=== PATIENT | female | born 1925 | race Caucasian/White ===

== ENCOUNTER 2016-11-08 22:35 | Inpatient (IN) | payer MEDICARE, MEDICAID ==
[2016-11-08 23:18] VITALS: BP 145/81
[2016-11-09] MEDS ORDERED: Magnesium Hydroxide (MOM) 30 mL UDC PO PRN (00:10)
[2016-11-09] MEDS ORDERED: Hydrocodone/APAP 5mg/325mg Tab PO PRN (00:10)
[2016-11-09] MEDS ORDERED: Maalox 30 mL Cup PO PRN (00:10)
[2016-11-09] MEDS ORDERED: Enoxaparin Subq per Pharmacy MC SCH (00:30)
[2016-11-09 01:04] LABS: ALB/GLOB RATIO 1.1 (1.0-1.8); ALKALINE PHOSPHATASE 108 U/L (34-104); ANION GAP 6.7 (7.0-16.0); BILIRUBIN,TOTAL 0.5 mg/dL (0.3-1.0); BUN - UREA NITROGEN 15 mg/dL (7-25); BUN/CREATININE RATIO 18.8; CALCIUM SERUM 8.4 mg/dL (8.6-10.3); CARBON DIOXIDE 25.2 mEq/L (21.0-31.0); CHLORIDE 106 mEq/L (98-107); CHOLESTEROL 109 mg/dL (<200); CREATININE - SERUM 0.8 mg/dL (0.6-1.2); GLUCOSE 109 mg/dL (70-105); POTASSIUM SERUM 3.9 mEq/L (3.5-5.1); SGOT 17 U/L (13-39); SGPT/ALT 13 U/L (7-52); SODIUM SERUM 134 mEq/L (136-145); TRIGLYCERIDES 95 mg/dL (<150)
[2016-11-09] MEDS: Hydrocodone/APAP 10 mg/325 mg Tab PO PRN ×2 (01:20→10:51)
[2016-11-09] MEDS ORDERED: Diltiazem 5 mg/mL 5mL Vial IVP STA (08:10)
[2016-11-09] MEDS: Diltiazem 30 mg Tab PO SCH ×3 (08:28→17:32)
[2016-11-09] MEDS: Enoxaparin 40 mg/0.4 mL 0.4mL Syr SUBQ SCH (08:29)
[2016-11-09 10:57] LABS: HEMATOCRIT 35.9 % (35.0-45.0); HEMOGLOBIN 12.2 gm/dL (11.7-16.1); MEAN CORPUSCULAR HEMOGLOBIN 30.6 pg (27.0-31.0); MEAN PLATELET VOLUME 10.9 fl; PLATELET COUNT 145 Th/cmm (150-400); RED BLOOD COUNT 3.99 Mil/cmm (3.80-5.20); WHITE BLOOD COUNT 8.3 Th/cmm (4.8-10.8)
[2016-11-09] MEDS ORDERED: Pneumococcal Vaccine 0.5 mL Vial IM ONE (11:00)
[2016-11-09] MEDS ORDERED: Influenza Vaccine 0.5 mL Syr IM ONE (11:00)
[2016-11-09 11:12] LABS: BASOPHIL 2 % (0-3); EOSINOPHIL 1 % (0-5); NEUTROPHILS 47 % (40-80); TOTAL CELLS COUNTED 100
[2016-11-09 11:13] LABS: PLATELET ESTIMATE DECREASED PLATELETS (NORMAL); PLATELET MORPHOLOGY NORMAL (NORMAL)
[2016-11-09 12:09] LABS: INR 1.1 (0.5-1.4)
[2016-11-09] MEDS ORDERED: Naloxone 0.4 mg/mL 1mL Vial ONE (12:32)
[2016-11-09] MEDS ORDERED: Naloxone 0.4 mg/mL 1mL Vial IV ONE (12:33)
--- NOTE | 2016-11-09 16:07 | Diagnostic Imaging Report ---
Bilateral carotid Doppler ultrasound exam HISTORY: Dizziness, syncope Sonographic sector images were obtained to the carotid bifurcation regions bilaterally. Associated Doppler data is obtained. The exam of the right side demonstrates mild to moderate diffuse atherosclerotic plaque to the common carotid artery and proximal internal carotid artery. Antegrade vertebral artery flow. Velocities and flow ratios are normal (ICC/CCA equals 1.1). The exam of the left side demonstrates mild diffuse atherosclerotic changes to the bifurcation area. Findings somewhat more moderate in the carotid bulb region. Antegrade vertebral artery flow. Slight increase in velocity noted within the internal carotid artery region. The ICA/CCA flow ratios normal (1.3). IMPRESSION: 1. Evidence of mild to moderate diffuse bilateral atherosclerotic changes
[2016-11-09] MEDS: D5-0.45NS 1,000 ML IV SCH (16:30)
[2016-11-10] MEDS: Diltiazem 30 mg Tab PO SCH ×4 (00:49→17:15)
--- NOTE | 2016-11-10 03:43 | History & Physical ---
CHIEF COMPLAINT: The patient has atrial fibrillation, new onset. HISTORY OF PRESENT ILLNESS: The patient is an 89-year-old female who initially presented to Emergency Room at [facility]. The patient was brought in by daughter to [facility] for complaints of left lower buttock pain radiating to right thigh by 7 days. The patient has been receiving home physical therapy. The patient has been taking Tylenol for pain without any relief. The patient denies any incontinence. The patient denies any numbness or tingling. In the ER, the patient was found to have new onset atrial fibrillation, uncontrolled heart rate in the 160s. The patient was transferred over to from [facility] ER to [facility] for further medical management. PAST MEDICAL HISTORY: 1. Hypertension. 2. Atherosclerosis of the aorta. 3. Depression. 4. Insomnia. 5. GERD. PAST SURGICAL HISTORY: Negative. ALLERGIES: No known drug allergies. MEDICATION: See medication reconciliation form. REVIEW OF SYSTEMS: See history of present illness. PHYSICAL EXAMINATION: VITAL SIGNS: On admission are as follows: Temperature is 97.9, pulse 122, blood pressure 145/81, respiratory rate 18, and O2 sat is 92% on room air. GENERAL: The patient is awake and alert, nontoxic in appearance. HEENT: Normocephalic and atraumatic. Extraocular movements are intact. Pupils are equal and reactive to light and accommodation. Oropharynx is clear. NECK: Supple. No thyromegaly. No lymphadenopathy. RESPIRATORY: Clear. No wheezing or rhonchi. CARDIOVASCULAR: Irregular rate and rhythm. GASTROINTESTINAL: Soft. Nontender and nondistended. Positive bowel sounds present. GENITOURINARY: No CVA tenderness and no suprapubic tenderness. BACK: Limb tenderness. EXTREMITIES: Equal pulses bilaterally. No cyanosis, clubbing, or edema. SKIN: Negative. PSYCHIATRIC: Negative. NEUROLOGIC: Cranial nerves II to XII are intact. Extraocular movements are intact. Sensation is intact. LABORATORY DATA: On admission as follows: Hematology: WBC 8.3, hemoglobin 12.2, hematocrit 35.9, platelet count of 145, 17% monocytes. PT 11.0 and INR 1.1. Chemistry: Sodium 134, potassium 3.9, chloride ____, bicarb 25, anion gap 6.7, BUN 15, creatinine 0.8, glucose is 109, calcium 8.4, total bilirubin is 0.5, AST 17, ALT 13, alk phos 108, and creatinine kinase 38. Troponin is 0.03. Total protein is 6.3. Albumin is 3.3, globulin 3.0. Lipid panel: Triglycerides 95, cholesterol 109, LDL is 76, HDL is 26, and TSH 1.29. Radiological test: CT of the lumbar spine shows L2 and L1 compression fractures, compression fracture of L4 vertebral body, partially visualized right-sided pleural effusion with adjacent ____, lung bases with atelectasis. Chest x-ray from [place] shows poor lung expansion and compressive changes. IMPRESSION: 1. Atrial fibrillation (new onset). 2. L2-L1 compression fractures. 3. Compression fracture of L4. 4. Lumbago. 5. Gastroesophageal reflux disease. 6. Insomnia. 7. Depression. 8. Thrombocytopenia. 9. Hyponatremia. 10. Hyperglycemia. 11. Hypercalcemia. 12. Hyperalbuminemia. PLAN: The patient was admitted to telemetry unit at [facility]. Cardiology consultation Dr. Richar Nettles. Obtain further labs and consultation as needed. JOB# [id number] MTDRemigio
[2016-11-10] MEDS: D5-0.45NS 1,000 ML IV SCH (05:12)
[2016-11-10 07:00] LABS: INR 1.3 (0.5-1.4); PROTHROMBIN TIME (TEST) 13.1 SECONDS (9.5-11.5)
[2016-11-10 07:01] LABS: HEMATOCRIT 32.7 % (35.0-45.0); MEAN CORPUSCULAR HEMOGLOBIN 30.4 pg (27.0-31.0); MEAN CORPUSCULAR HGB CONC 33.7 pg (28.0-36.0); MEAN PLATELET VOLUME 9.9 fl; PLATELET COUNT 141 Th/cmm (150-400); RED BLOOD COUNT 3.63 Mil/cmm (3.80-5.20); RED CELL DISTRIBUTION WIDTH 13.9 % (11.5-20.0)
[2016-11-10 07:04] LABS: ANION GAP 5.1 (7.0-16.0); BUN - UREA NITROGEN 11 mg/dL (7-25); BUN/CREATININE RATIO 15.7; CALCIUM SERUM 8.3 mg/dL (8.6-10.3); CARBON DIOXIDE 27.4 mEq/L (21.0-31.0); CHLORIDE 106 mEq/L (98-107); CREATININE - SERUM 0.7 mg/dL (0.6-1.2); GLUCOSE 114 mg/dL (70-105); POTASSIUM SERUM 3.5 mEq/L (3.5-5.1); SODIUM SERUM 135 mEq/L (136-145)
[2016-11-10 07:08] LABS: WHITE BLOOD COUNT 6.5 Th/cmm (4.8-10.8)
[2016-11-10] MEDS: Pantoprazole 40 mg EC Tab PO SCH (09:26)
[2016-11-10] MEDS: Enoxaparin 40 mg/0.4 mL 0.4mL Syr SUBQ SCH (09:26)
[2016-11-10 09:54] LABS: BAND NEUTROPHILE 2 % (0-10); NEUTROPHILS 49 % (40-80); PLATELET ESTIMATE DECREASED PLATELETS (NORMAL); PLATELET MORPHOLOGY NORMAL (NORMAL); TOTAL CELLS COUNTED 100
[2016-11-10] MEDS ORDERED: IOHEXOL 300MG/ML 100 ML VIAL IVP ONE (10:05)
--- NOTE | 2016-11-10 11:23 | Diagnostic Imaging Report ---
Head CT with intravenous contrast Indication: Acute right-sided hemiplegia Comparison: None Technique: Axial images were obtained from the vertex to the skull base with IV contrast. Coronal reconstructions were made. Total DLP: 550, CTDI31.3 FINDINGS: Assessment for hemorrhage is limited due to IV contrast administration, however, no evidence of an acute hemorrhage. Mild atrophy is noted. Minimal supratentorial white matter disease noted. The ventricles and basal cisterns are patent. No mass effect or midline shift. No enhancing mass lesions identified. Limited evaluation of the vasculature demonstrates no significant focal atherosclerotic vascular disease. No evidence of a skull fracture or focal soft tissue swelling. The visualized paranasal sinuses are clear. IMPRESSION: No evidence of an intracranial hemorrhage Atrophy. Minimal supratentorial white matter disease which is nonspecific and may be due to chronic microvessel ischemia Given patient's clinical history, consider further assessment with MRI examination.
--- NOTE | 2016-11-10 15:33 | Admit Criteria Form ---
Admit Criteria Forms - Admit Criteria Diagnosis: TELEMETRY CARE Telemetry Admission Guidelines (Place 'X' for any and all applicable criteria): Admission to telemetry [A] may be indicated for ANY ONE of the following(1)(2)(3 )(4)(5): [X ]I. Cardiac disease, including ANY ONE of the following (9)(10)(11)(12)( 13): [ ]a) Postacute AK [ ]b) Low-risk patients with ST-segment elevation AK who have undergone successful percutaneous coronary intervention [ ]c) Unstable angina [ ]d) Suspected AK (until it is ruled out) [ ]e) Post cardiac surgery (first 48 to 72 hours unless complications occur) [ X]f) Acute arrhythmias (including significant tachycardia or bradycardia) [B] [ ]g) Firing of an implantable cardioverter defibrillator [C] [ ]h) Suspected pacemaker or implantable cardioverter defibrillator malfunction (10) [ ]i) New administration or adjustment of an antiarrhythmic drug [D ] [ ]j) Child admitted for acute congestive heart failure [ ]j) Long QT syndrome [ ]k) Advanced heart block (eg, second-degree Mobitz type II, third- degree heart block) [ ]l) Acute myocarditis or pericarditis [ ]m) Short-term (ambulatory or inpatient) monitoring after a cardiac procedure as indicated by ANY ONE of the following [E]: [ ]i) Electrophysiologic studies [ ]ii) Percutaneous coronary intervention with stent placement [ ]iii) Pacemaker placement with cardiac conduction defect [ ]iv) Implantable cardiac defibrillator placement [ ]II. Drug overdose or poisoning with substance that causes arrhythmias or QT prolongation (eg, phenothiazines, sympathomimetic agents, cyclic antidepressants, digitalis, antiarrhythmic drugs)(15) [ ]III. Short-term (ambulatory or inpatient) monitoring after therapeutic or diagnostic procedure requiring conscious sedation or anesthesia (eg, endoscopy, elective cardioversion) [ ]IV. Acute cerebrovascular even[F](18) [ ]V. Massive blood transfusion (eg, at least 10 units of packed red blood cells in 24 hours) [ ]. Variceal bleeding after endoscopy, sclerotherapy, or IV vasopressin [ ]VII. Uncorrected electrolyte abnormalities associated with an increased risk of dangerous arrhythmia [G]; examples include [ ]a) Hyperkalemia with attributable ECG changes [ ]b) Potassium greater than 6.5 mmol/L (mEq/L) in a patient without history of chronic renal disease [ ]c) Prolonged QT attributed to hypokalemia, hypomagnesemia, or hypocalcemia [ ]VIII.Unexplained syncope or other neurologic event suspected of being due to arrhythmia due to a finding that increases risk; examples include(19)(20)(21): [ ]a) High-risk ECG findings (eg, bifascicular block, bradycardia, abnormal QT interval, ventricular pre- excitation) [ ]b) History of previous syncope due to arrhythmia [ ]c) Abnormal ventricular function (eg, reduced ejection fraction ) [ ]d) Exertional or supine syncope [ ]e) Concerning syncope characteristics (eg, sudden loss of consciousness without prodrome) [ ]f) Family history of sudden [ ]g) Use of arrhythmogenic medication [ ]h) Suspected cardiac ischemia [ ]i) Known channelopathy (eg, long QT syndrome, Brugada syndrome, or catecholaminergic paroxysmal ventricular tachycardia) [ ]j) Known structural heart disease (eg, hypertrophic cardiomyopathy , severe valvular disease) [ ]k) Palpitations preceding syncope The original [employer] content created by [employer] has been revised. The portions of the content which have been revised are identified through the use of italic text or in bold, and [facility] has neither reviewed nor approved the modified material. All other unmodified content is copyright [employer]. Please see references footnoted in the original [employer] edition 2016 Admit Criteria Met?: Yes
[2016-11-10] MEDS: Hydrocodone/APAP 10 mg/325 mg Tab PO PRN (17:15)
--- NOTE | 2016-11-10 21:58 | Consultation ---
CARDIOLOGY CONSULTATION: HISTORY OF PRESENT ILLNESS: This patient is seen on courtesy of Dr. Ronald Nettles, as the patient is coming with atrial fibrillation. Initially, the patient was admitted here on transfer from [facility], as the patient came with palpitation and having the lower back pain and the right thigh pain for 7 days, but here on coming, it was found that the patient has new onset of atrial fibrillation uncontrolled. Heart rate was 160, which was brought down to 110 in range after giving the Cardizem. The patient is still in atrial fibrillation with better control somewhere about 90-110 range of ventricular rate. This morning, it was found out that the patient has weakness on the right side, could not lift her right leg and also has weakness in lifting the upper right extremity and closing the hand. There is weakness on the upper right extremity and inability to mobilize right lower extremity. Last night, the patient was started on Lovenox and started Coumadin also and was in the process of getting the full dose of calculated 1 mg/kg body weight Lovenox. PAST MEDICAL HISTORY: Hypertension, insomnia, GERD and also atherosclerotic cardiovascular disease. ALLERGIES: None known. MEDICATIONS: Reviewed. PHYSICAL EXAMINATION: GENERAL: The patient is an 89-year-old female who is Persian speaking, not in acute distress. VITAL SIGNS: Blood pressure is in normal range, heart rate atrial fibrillation with rapid ventricular rate of 90-110 range. HEENT: Normal. NECK: Supple. JVP is flat. No lymphadenopathy. CHEST: Equal breath sounds bilaterally. No chest wall tenderness. LUNGS: Clinically clear. CARDIOVASCULAR SYSTEM: PMI not palpable. Heart sounds are variable. Heart rate is also irregularly irregular. The S2 is loud and variable with systolic ejection murmur, which is 2-3/6 grade in aortic area conducting towards the carotid, towards apex. POLICY DIRECTOR: As mentioned above. EXTREMITIES: No edema. No cyanosis. Peripheral pulsations are equal bilaterally. IMPRESSION: 1. Atrial fibrillation, better controlled with ventricular rate. 2. New onset of atrial fibrillation. 3. New onset of a stroke. 4. History of electrolyte disorder as mentioned above. Other medical problems are as per chart. PLAN: In view of recent stroke, I discussed the case with Dr. Conway and the family also. We will transfer the patient to [facility] for new stroke and with stroke management. I have ordered the stat CT while we are waiting for ambulance and bed to be arranged at [facility]. Further workup and management as needed, JOB# [id number] MIKAELA
[2016-11-11] MEDS: Diltiazem 30 mg Tab PO SCH ×5 (00:18→23:36)
--- NOTE | 2016-11-11 05:34 | Progress Notes ---
SUBJECTIVE: The patient is on anticoagulation therapy per pharmacy with Lovenox and Coumadin. The patient has new onset weakness on right side of body. OBJECTIVE: VITAL SIGNS: Temperature 97.6, pulse is 100, blood pressure 135/72, respiratory rate 20, O2 saturation 95% on nasal cannula. CARDIOVASCULAR: Irregularly irregular. RESPIRATORY: Clear. GASTROINTESTINAL: Soft. Positive bowel sounds. Neurological: RUE/RLE Weakness LABORATORY DATA: Hematology: WBC of 6.5, hemoglobin 10.0, hematocrit 32.7, platelet count 141. PT 13.1, INR 1.3. Chemistry: Sodium 135, potassium 3.5, chloride 106, bicarbonate 27, anion gap 5.1, BUN 11, creatinine 0.7, GFR unavailable. Glucose is 114, calcium 8.3. Microbiology: No new microbiology results. ASSESSMENT: 1. Atrial fibrillation (new onset). 2. L2, L1 compression fractures. 3. Compression of L4. 4. Lumbago. 5. Gastroesophageal reflux disease. 6. Insomnia. 7. Depression. 8. Anemia. 9. Thrombocytopenia. 10. Hyponatremia. 11. Hyperglycemia. 12. Hypocalcemia. 13. CVA (new onset) PLAN: Continue current medication and treatment. Obtain labs in a.m. Awaiting Cardiology consultation. Further recommendations per consults. CT of Head ordered. Neurology Consult (Dr. Conway) ordered. JOB# [id number] MTDD
[2016-11-11 07:10] LABS: HEMOGLOBIN 12.3 gm/dL (11.7-16.1); MEAN CELL VOLUME 89.9 fl (81-100); MEAN CORPUSCULAR HEMOGLOBIN 30.5 pg (27.0-31.0); MEAN CORPUSCULAR HGB CONC 33.9 pg (28.0-36.0); MEAN PLATELET VOLUME 9.9 fl; PLATELET COUNT 150 Th/cmm (150-400); RED BLOOD COUNT 4.02 Mil/cmm (3.80-5.20); RED CELL DISTRIBUTION WIDTH 13.9 % (11.5-20.0); WHITE BLOOD COUNT 7.5 Th/cmm (4.8-10.8)
[2016-11-11 07:24] LABS: BUN - UREA NITROGEN 8 mg/dL (7-25); BUN/CREATININE RATIO 11.4; CALCIUM SERUM 8.3 mg/dL (8.6-10.3); CARBON DIOXIDE 29.2 mEq/L (21.0-31.0); CHLORIDE 105 mEq/L (98-107); CREATININE - SERUM 0.7 mg/dL (0.6-1.2); GLUCOSE 113 mg/dL (70-105); HEMATOCRIT 36.2 % (35.0-45.0); POTASSIUM SERUM 3.2 mEq/L (3.5-5.1); SODIUM SERUM 136 mEq/L (136-145)
[2016-11-11 08:08] LABS: INR 3.83 (0.5-1.4)
[2016-11-11 08:33] LABS: EOSINOPHIL 2 % (0-5); NEUTROPHILS 51 % (40-80); TOTAL CELLS COUNTED 100
[2016-11-11 08:34] LABS: PLATELET ESTIMATE ADEQUATE (NORMAL); PLATELET MORPHOLOGY NORMAL (NORMAL)
[2016-11-11 08:45] LABS: PROTHROMBIN TIME (TEST) 41.3 SECONDS (9.5-11.5)
[2016-11-11] MEDS: Enoxaparin 40 mg/0.4 mL 0.4mL Syr SUBQ SCH (09:00)
[2016-11-11] MEDS: Pantoprazole 40 mg EC Tab PO SCH (09:16)
[2016-11-11] MEDS: D5-0.45NS 1,000 ML IV SCH (09:17)
--- NOTE | 2016-11-11 10:27 | History & Physical ---
HISTORY OF PRESENT ILLNESS: The patient is an 89-year-old. Transferred from [place]. She had a complaint of back pain, question of possible fall. Noted to have an old compression fracture. The patient also has atrial fibrillation. ____ patient noted by the family in the morning that she had paralysis on the right side. She can talk okay, sees okay, can swallow. Discussed with Dr. Mirna Nettles who recommended the patient be transferred to a Stroke Center. The patient continues to be the same with the weakness on the right side. PAST MEDICAL HISTORY: Hypertension, ataxia, now new atrial fibrillation. ALLERGIES: None known. SOCIAL HISTORY: Does not smoke or drink. REVIEW OF SYSTEMS: On talking to family, vision okay. Somewhat forgetful. No chest pain. Back pain as above. Weakness on right side. PHYSICAL EXAMINATION: VITAL SIGNS: Temperature 98.2, blood pressure 140/88, pulse is around about 110. NECK: Supple. No bruits. HEART: Sounds S1, S2. Soft murmur. LUNGS: Clear. ABDOMEN: Soft. NEUROLOGIC: The patient is awake, alert. She follows instruction. Family by the bedside. She speaks mainly Belarusian. CRANIAL NERVES: The patient has no visual field defect. I do not see much facial weakness. Motor: She will lift arms, but much weaker on the right. Legs, the right she cannot lift, the left is about 3+. Reflexes, about 1, reduced on the right. Babinski on the right. INVESTIGATIONS: CT scan of the head, no acute process noted. No bleed. Some small vessel disease. The patient had carotid Doppler studies, has atherosclerotic changes. LABORATORY DATA: WBC 7.5, hemoglobin 12.3. INR is 1.3. TSH is 1.29. IMPRESSION: 1. Stroke, right hemiparesis. 2. Atrial fibrillation. 3. Back pain with compression fracture. 4. Ataxia. 5. Hypertension. TREATMENT AT THE MOMENT: The patient is on Lovenox 40 subcu daily. The patient apparently started also on Coumadin as per Pharmacy. Discussed with the family the patient risk of stroke without anticoagulation, but also high risk with anticoagulation. Family aware. MANAGEMENT: At this time, I plan to do an MRI, recommend echocardiogram. Physical therapy rehabilitation. JOB# [id number]
--- NOTE | 2016-11-12 01:40 | Progress Notes ---
SUBJECTIVE: The patient is awake and alert. The patient has weakness on right upper extremity and right lower extremity. The patient is on anticoagulation therapy. OBJECTIVE: VITAL SIGNS: Temperature 98.0, pulse 135, blood pressure per nursing, respiratory rate 17, and O2 sat 93% on 2 L nasal cannula. CARDIOVASCULAR: Regular rate and rhythm. RESPIRATORY: A few rales. GASTROINTESTINAL: Soft. Positive bowel sounds. EXTREMITIES: Weakness on right upper extremity and right lower extremity. LABORATORY DATA: Hematology: WBC 7.5, hemoglobin 12.3, hematocrit 36.2, platelet count per labs, 19% monocytes. PT per labs. INR 3.83. Chemistry: Sodium 136, potassium 3.2, chloride 105, bicarb 29, anion gap 5, BUN 8, and creatinine 0.7. GFR is unavailable. Glucose is 113 and calcium 8.3. Microbiology: MRSA screen from 11/09/2016 is positive. ASSESSMENT: 1. Atrial fibrillation (new onset). 2. L2-L1 compression fracture. 3. Compression of L4. 4. Lumbago. 5. Gastroesophageal reflux disease. 6. Insomnia. 7. Depression. 8. MRSA colonization 9. Hyperglycemia. 10. Hypocalcemia. 11. Cerebrovascular accident (new onset). 12. Debility (secondary to cerebrovascular accident). 13. Right-sided hemiplegia. PLAN: Continue current medication and treatment. Obtain labs in a.m. Ordered for rehab therapy. The patient's Lovenox has been stopped. The patient is still on Coumadin per pharmacy. JOB# [id number] [facility] NETWORKRemigio
[2016-11-12] MEDS ORDERED: Diltiazem 5 mg/mL 5mL Vial IVP PRN (05:24)
[2016-11-12] MEDS: Diltiazem 30 mg Tab PO SCH ×3 (06:04→17:03)
[2016-11-12] MEDS: Pantoprazole 40 mg EC Tab PO SCH (08:54)
[2016-11-12 10:07] LABS: HEMATOCRIT 36.5 % (35.0-45.0); HEMOGLOBIN 12.5 gm/dL (11.7-16.1); MEAN CELL VOLUME 88.9 fl (81-100); MEAN CORPUSCULAR HEMOGLOBIN 30.5 pg (27.0-31.0); MEAN CORPUSCULAR HGB CONC 34.3 pg (28.0-36.0); MEAN PLATELET VOLUME 9.1 fl; PLATELET COUNT 171 Th/cmm (150-400); RED CELL DISTRIBUTION WIDTH 13.8 % (11.5-20.0); WHITE BLOOD COUNT 7.6 Th/cmm (4.8-10.8)
[2016-11-12 10:41] LABS: ALKALINE PHOSPHATASE 104 U/L (34-104); ANION GAP 4.3 (7.0-16.0); BILIRUBIN,TOTAL 0.6 mg/dL (0.3-1.0); BUN - UREA NITROGEN 5 mg/dL (7-25); BUN/CREATININE RATIO 8.3; CALCIUM SERUM 8.2 mg/dL (8.6-10.3); CARBON DIOXIDE 30.1 mEq/L (21.0-31.0); CHLORIDE 103 mEq/L (98-107); CREATININE - SERUM 0.6 mg/dL (0.6-1.2); GLUCOSE 138 mg/dL (70-105); SGOT 14 U/L (13-39); SGPT/ALT 9 U/L (7-52); SODIUM SERUM 135 mEq/L (136-145)
[2016-11-12 10:55] LABS: POTASSIUM SERUM 2.4 mEq/L (3.5-5.1)
[2016-11-12 10:56] LABS: INR 3.98 (0.5-1.4); PROTHROMBIN TIME (TEST) 43.1 SECONDS (9.5-11.5)
[2016-11-12] MEDS: Enoxaparin 40 mg/0.4 mL 0.4mL Syr SUBQ SCH (10:56)
[2016-11-12] MEDS ORDERED: Potassium Chloride 40 MEQ, Lidocaine 1% 20mL Vial 25 MG in Sodium Chloride 0.9% 250 ML IV ONE (11:05)
[2016-11-12 11:09] LABS: EOSINOPHIL 2 % (0-5); NEUTROPHILS 45 % (40-80); PLATELET ESTIMATE ADEQUATE (NORMAL); PLATELET MORPHOLOGY NORMAL (NORMAL); TOTAL CELLS COUNTED 100
[2016-11-13] MEDS: Diltiazem 30 mg Tab PO SCH ×4 (00:46→17:12)
--- NOTE | 2016-11-13 03:26 | Progress Notes ---
SUBJECTIVE: The patient is awake and alert. Per family, the patient ____ tired and weak. The patient per family also is choking on salts and liquids. OBJECTIVE: VITAL SIGNS: Temperature 97.9, pulse 119, blood pressure 119/70, respiratory rate 18, and O2 sat is 96% on O2 nasal cannula. CARDIOVASCULAR: S1 and S2. RESPIRATORY: A few rales. GASTROINTESTINAL: Soft. Positive bowel sounds. LABORATORY DATA: Hematology: WBC is 7.6, hemoglobin 12.5, hematocrit 36.5, platelet count per labs, 45% lymphocytes, 28% monocytes. PT 43.1, INR 3.98. Chemistry: Sodium 135, potassium 2.4, chloride 103, bicarb 30, anion gap of 4.3, BUN 5, creatinine 0.6. GFR unavailable. Glucose is 138, calcium 8.2, total bili 0.6, AST 14, ALT 9, alk phos 104, total protein 6.4, albumin 3.2, globulin 3.2. Radiology: No new results. ASSESSMENT: 1. Hyponatremia. 2. Hypokalemia. 3. Hyperglycemia. 4. Hypercalcemia. 5. Hyperalbuminemia. 6. Atrial fibrillation (new onset). 7. L2-L1 compression fracture. 8. Compression fracture of L4. 9. Lumbago. 10. Gastroesophageal reflux disease. 11. Depression. 12. Methicillin-resistant Staphylococcus aureus colonization. 13. Cerebrovascular accident (new onset). 14. Debility secondary to cerebrovascular accident. 15. Right-sided hemiplegia. 16. Dysphagia. PLAN: Continue current medication and treatment. Obtain labs in a.m. Continue inpatient rehab therapy. Pharmacy will manage Coumadin dosing. We will obtain speech therapy evaluation regarding the patient's apparent choking. JOB# [id number] [facility]
[2016-11-13] MEDS: D5-0.45NS 1,000 ML IV SCH ×2 (05:00→20:51)
[2016-11-13 07:00] LABS: INR 2.7 (0.5-1.4); PROTHROMBIN TIME (TEST) 28.5 SECONDS (9.5-11.5)
[2016-11-13 07:08] LABS: BUN - UREA NITROGEN 8 mg/dL (7-25); BUN/CREATININE RATIO 13.3; CALCIUM SERUM 8.1 mg/dL (8.6-10.3); CARBON DIOXIDE 29.1 mEq/L (21.0-31.0); CHLORIDE 106 mEq/L (98-107); CREATININE - SERUM 0.6 mg/dL (0.6-1.2); GLUCOSE 130 mg/dL (70-105); POTASSIUM SERUM 3.1 mEq/L (3.5-5.1); SODIUM SERUM 136 mEq/L (136-145)
[2016-11-13 07:24] LABS: HEMATOCRIT 33.2 % (35.0-45.0); HEMOGLOBIN 11.5 gm/dL (11.7-16.1); MEAN CELL VOLUME 89.1 fl (81-100); MEAN CORPUSCULAR HEMOGLOBIN 30.8 pg (27.0-31.0); MEAN CORPUSCULAR HGB CONC 34.6 pg (28.0-36.0); MEAN PLATELET VOLUME 9.6 fl; PLATELET COUNT 169 Th/cmm (150-400); RED BLOOD COUNT 3.73 Mil/cmm (3.80-5.20); RED CELL DISTRIBUTION WIDTH 13.8 % (11.5-20.0); WHITE BLOOD COUNT 6.7 Th/cmm (4.8-10.8)
[2016-11-13 09:49] LABS: EOSINOPHIL 2 % (0-5); NEUTROPHILS 46 % (40-80); PLATELET ESTIMATE ADEQUATE (NORMAL); PLATELET MORPHOLOGY NORMAL (NORMAL); TOTAL CELLS COUNTED 100
[2016-11-13] MEDS: Pantoprazole 40 mg EC Tab PO SCH (09:58)
[2016-11-13] MEDS: Diltiazem 5 mg/mL 5mL Vial IVP PRN ×2 (11:48→18:01)
[2016-11-13] MEDS ORDERED: Potassium Chloride 40 MEQ, Lidocaine 1% 20mL Vial 25 MG in Sodium Chloride 0.9% 250 ML IV ONE (12:00)
[2016-11-14] MEDS: Diltiazem 30 mg Tab PO SCH ×3 (01:24→12:57)
[2016-11-14 06:15] LABS: HEMATOCRIT 34.3 % (35.0-45.0); HEMOGLOBIN 11.6 gm/dL (11.7-16.1); MEAN CELL VOLUME 89.7 fl (81-100); MEAN CORPUSCULAR HEMOGLOBIN 30.4 pg (27.0-31.0); MEAN CORPUSCULAR HGB CONC 33.8 pg (28.0-36.0); PLATELET COUNT 170 Th/cmm (150-400); RED BLOOD COUNT 3.83 Mil/cmm (3.80-5.20); RED CELL DISTRIBUTION WIDTH 13.8 % (11.5-20.0)
[2016-11-14 06:26] LABS: INR 3.32 (0.5-1.4); PROTHROMBIN TIME (TEST) 35.4 SECONDS (9.5-11.5)
[2016-11-14] MEDS: D5-0.45NS 1,000 ML IV SCH (06:29)
[2016-11-14 06:31] LABS: ANION GAP 4.6 (7.0-16.0); BUN - UREA NITROGEN 10 mg/dL (7-25); BUN/CREATININE RATIO 16.7; CALCIUM SERUM 8.3 mg/dL (8.6-10.3); CARBON DIOXIDE 27.4 mEq/L (21.0-31.0); CHLORIDE 106 mEq/L (98-107); CREATININE - SERUM 0.6 mg/dL (0.6-1.2); GLUCOSE 141 mg/dL (70-105); SODIUM SERUM 135 mEq/L (136-145)
[2016-11-14] MEDS ORDERED: Potassium Chloride 20 mEq ER Tab PO ONE ×2 (06:49→15:21)
[2016-11-14 07:31] LABS: EOSINOPHIL 4 % (0-5); NEUTROPHILS 44 % (40-80); TOTAL CELLS COUNTED 100
[2016-11-14 07:32] LABS: PLATELET ESTIMATE ADEQUATE (NORMAL); PLATELET MORPHOLOGY NORMAL (NORMAL)
[2016-11-14] MEDS: Pantoprazole 40 mg EC Tab PO SCH (10:03)
--- NOTE | 2016-11-14 13:10 | Progress Notes ---
SUBJECTIVE: The patient is awake and alert. The patient is unable to do MRI due to the patient being claustrophobic. The patient is receiving inpatient rehab therapy. The patient is on anticoagulation therapy. OBJECTIVE: VITAL SIGNS: Temperature 98.2, pulse 124, blood pressure 112/74, respirations 17 and O2 saturation 98% on 2 liters nasal cannula. CARDIOVASCULAR: S1 and S2. RESPIRATORY: Rales. ABDOMEN: Soft, positive bowel sounds. LABORATORY DATA: Hematology: WBC of 6.7, hemoglobin 11.5, hematocrit 33.2, platelet count 169 and 25% monocytes. PT 28.5, INR of 2.7. Chemistry: Sodium 136, potassium 3.1, chloride 106, bicarbonate of 29, anion gap of 4, BUN 8, creatinine 0.6, glucose is 130 and calcium 8.1. RADIOLOGY: No new radiology test. ASSESSMENT: 1. Anemia. 2. Hypokalemia. 3. Hypoglycemia. 4. Hypocalcemia. 5. Atrial fibrillation (new onset). 6. L2-L1 compression fracture, compression fracture L4, lumbago. 7. Gastroesophageal reflux disease. 8. Depression. 9. Insomnia. 10. MRSA colonization, new onset. 11. Cerebrovascular accident, new onset. 13. Hemiplegia. PLAN: Continue current medication and treatment. Obtain labs. Further recommendations per consults. JOB# [id number] MTDD
--- NOTE | 2016-11-14 14:07 | Diagnostic Imaging Report ---
MRI of the brain without intravenous contrast HISTORY: Stroke, CVA Multiple MRI sequences were obtained the axial, coronal, and sagittal planes. There is a normal ventricular system size for age. There is enlargement of cerebral sulci and subarachnoid cisterns reflecting a degree of cerebral atrophy. Mild periventricular increased signal is noted about the periphery of the lateral ventricles on T2 and FLAIR images. Multiple small hyperintense foci are seen on the sequences scattered throughout the supratentorial white matter regions. The findings may be associated with chronic small vessel ischemic disease. A 5 mm somewhat more discrete focus is seen in the left temporal white matter region characterized by hypointensity on T1 images and increased signal intensity and T2 images. Findings may be associated with an old infarct. Of particular note and a focus of abnormal increased signal intensity on diffusion images within the high left parietal region of the brain near the midline. No significant mass effect. MRI signal characteristics are consistent with changes of an acute ischemic infarct. Clinical correlation is needed. The cerebellum appears normal. No focal lesions are seen. The brainstem appears normal. The seventh/eighth nerve complexes are seen bilaterally and appear normal. No extra-axial masses or abnormal fluid collections. No abnormality seen in the region of the sella turcica/pituitary gland. Normal aeration of the paranasal sinuses. IMPRESSION: 1. Abnormal focus in the high left parietal region near the midline with MRI signal characteristics consistent with changes of an ACUTE ISCHEMIC INFARCT. No significant mass effect. Clinical correlation is needed. 2. Extensive supratentorial and periventricular white matter changes that may be associated with chronic small vessel ischemic disease. 3. Small focus in the left temporal white matter region that may be related to an old lacunar infarct 4. Cerebral atrophy
--- NOTE | 2016-11-15 07:38 | Progress Notes ---
SUBJECTIVE: The patient is on IV anticoagulation therapy. The patient is receiving inpatient rehab therapy. OBJECTIVE: VITAL SIGNS: Temperature 97.2, pulse of 130, blood pressure 135/81, respiratory per nursing. CARDIOVASCULAR: S1 and S2. RESPIRATORY: Clear. ABDOMEN: Soft. Positive bowel sounds. LABORATORY DATA: Labs on patient, WBC per labs, hemoglobin per labs, hematocrit per labs, platelet 170, 22% eosinophils. PT ____per labs, INR 3.32. Chemistry: Sodium 135, potassium 3.0, chloride per labs, BUN 10, creatinine 0.6, glucose is 141, calcium 8.3, mag per labs. ASSESSMENT: 1. Anemia. 2. Atrial fibrillation (new onset). 3. L2-L1 compression fracture. 4. Compression fracture of L4. 5. Lumbago. 6. Gastroesophageal reflux disease. 7. Depression. 8. Insomnia. 9. Methicillin-resistant Staphylococcus aures colonization. 10. Cerebrovascular accident. 11. Hemiplegia. PLAN: Continue current medication. Obtain labs in a.m. Further recommendations per consults. 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 JOB# [id number] MIKAELA
--- NOTE | 2016-11-23 01:03 | Discharge Summary ---
DISCHARGE DIAGNOSES: 1. Anemia. 2. Atrial fibrillation (new onset). 3. L2-L1 compression fracture, Compression fracture L4. 4. Lumbago. 5. Gastroesophageal reflux disease. 6. Depression. 7. Insomnia. 8. Methicillin-resistant Staphylococcus aureus colonization. 9. Cerebrovascular accident. 10. Hemiplegia. HOSPITAL COURSE: The patient is an 89-year-old female ____ atrial fibrillation, new onset. The patient was transferred from [facility]. The patient was admitted with diagnoses of atrial fibrillation, new onset; L2-L1 compression fracture ____ L4; lumbago; GRED; insomnia; depression; thrombocytopenia; hyponatremia; ____. The patient was admitted to telemetry unit. Cardiology consultation was obtained from Dr. Richar Nettles. The patient on 11/10/2016 showed signs of new-onset CVA. CAT scan performed showed minimal ____ disease, ____ maybe due to microvascular ischemia. Recommended further evaluation by MRI. ____ 11/09/2016 showed evidence of mild to moderate diffuse ____ changes. MRI of brain performed on 11/14/2016 showed ____ region near midline with MRI ____ changes of an acute ischemic infarct. No significant mass effect. ____ periventricular white matter changes, ____ ischemic disease, small focus in left temporal white matter region that may be old due to old ____ infarct and cerebral atrophy. On admission, the patient was started on anticoagulation therapy with Lovenox and Coumadin to be managed by pharmacy. After evidence of possible CVA, Neurology consultation was obtained from Dr. Conway. Recommendation was the patient be ordered for MRI, echocardiogram, physical therapy, and rehab. Because the patient's INR is within therapeutic range, the patient was stopped from Lovenox and continued with Coumadin. The [facility] was [facility] to [facility]14[facility]. JOB# [id number]
== END 2016-11-14 06:20 | DRG 308 ==
LOC: TELE 22:35
PROVIDERS: ADMIT Preventive Medicine Preventive Medicine/Occupational Environmental Medicine; ATTEND Preventive Medicine Preventive Medicine/Occupational Environmental Medicine
DX: I48.91 Unspecified atrial fibrillation (principal); I63.9 Cerebral infarction, unspecified; M48.56XA Collapsed vertebra, not elsewhere classified, lumbar region, initial encounter for fracture; D69.6 Thrombocytopenia, unspecified; E87.1 Hypo-osmolality and hyponatremia; G81.91 Hemiplegia, unspecified affecting right dominant side; E83.52 Hypercalcemia; M54.5 Low back pain; K21.9 Gastro-esophageal reflux disease without esophagitis; G47.00 Insomnia, unspecified; F32.9 Major depressive disorder, single episode, unspecified; R73.9 Hyperglycemia, unspecified; E87.6 Hypokalemia; R13.10 Dysphagia, unspecified; I70.0 Atherosclerosis of aorta; I10 Essential (primary) hypertension; I25.10 Atherosclerotic heart disease of native coronary artery without angina pectoris; R27.0 Ataxia, unspecified; D64.9 Anemia, unspecified; E16.2 Hypoglycemia, unspecified; Z22.322 Carrier or suspected carrier of Methicillin resistant Staphylococcus aureus
CPT/HCPCS: 36415-UA; 70460-TC; 80048-TC; 80053-TC; 80061-TC; 82550-TC; 82948-90; 83735-TC; 84443-TC; 84484-TC; 85007-TC; 85027-TC; 85610-TC; 90779; 93005; 93880-TC; 94760; 97530; J1650; J2001; J2060; J2405; J3480; Q9967; X3401; X3904; X4304; X6614; Z7610; Z7610-TC